=== PATIENT | male | born 1965 | race Caucasian/White ===

== ENCOUNTER 2021-12-21 07:26 | Day surgery (SDC) | payer OTHER ==
[~2021-12-21] VITALS: Ht 170.2 cm; Wt 77.1 kg
[2021-12-21] MEDS ORDERED: CEFAZOLIN SOD 1 GM in D5W 50 ML IV ONE (08:15)
[2021-12-21] MEDS ORDERED: LIDOCAINE 1% 10 MG/ML, 20 ML MDV ONE (10:40)
[2021-12-21] MEDS ORDERED: BUPIVACAINE /PF 0.25% 30 ML VIAL INJ ONE (10:40)
[2021-12-21] MEDS ORDERED: NS IRRIG SOLN 1000 ML IR ONE (10:40)
[2021-12-21] MEDS ORDERED: CEFAZOLIN 2 GM IVPB PREMIX 50 ML IV ONE (10:40)
[2021-12-21] MEDS ORDERED: SUGAMMADEX SODIUM 200 MG/2 ML VIAL IV ONE (10:40)
[2021-12-21] MEDS ORDERED: ROCURONIUM BROMIDE 10 MG/ML (ZEMURON) ONE (10:40)
[2021-12-21] MEDS ORDERED: DESFLURANE 15 MIN GAS INH ONE (10:40)
[2021-12-21] MEDS ORDERED: LR 1,000 ML IV.SOLN IV ONE (10:40)
[2021-12-21] MEDS ORDERED: KETOROLAC TROMETHAMINE 30 MG VIAL ONE (10:40)
[2021-12-21] MEDS ORDERED: ONDANSETRON HCL 4 MG/2 ML VIAL ONE (10:40)
[2021-12-21] MEDS ORDERED: fentaNYL CITRATE/PF 100 MCG/2 ML AMP ONE (10:40)
[2021-12-21] MEDS ORDERED: PROPOFOL 200MG/ 20ML VIAL (DIPRIVAN) IV ONE (10:40)
[2021-12-21] MEDS ORDERED: MIDAZOLAM HCL 2 MG/2 ML VIAL (VERSED) ONE (10:40)
[2021-12-21] MEDS ORDERED: LR 1,000 ML IV SCH (11:30)
[2021-12-21] MEDS ORDERED: METOCLOPRAMIDE HCL 10 MG/2 ML VIAL IVP PRN (11:30)
[2021-12-21] MEDS ORDERED: hydrALAZINE HCL 20 MG/ML VIAL IVP PRN (11:30)
[2021-12-21] MEDS ORDERED: HYDROmorphone 1 MG/ML INJ. CARTRIDGE IVP PRN ×2 (11:30)
[2021-12-21] MEDS ORDERED: MIDAZOLAM HCL 2 MG/2 ML VIAL (VERSED) IVP PRN (11:30)
[2021-12-21] MEDS ORDERED: LABETALOL 100 MG/ 20ML VIAL IVP PRN (11:30)
[2021-12-21] MEDS ORDERED: MEPERIDINE HCL/PF 25 MG/ML DISP.SYRIN IVP PRN (11:30)
[2021-12-21] MEDS ORDERED: ACETAMINOPHEN I.V. 1000 MG 100 ML IV ONE (11:52)
[2021-12-21] MEDS: HYDROmorphone 1 MG/ML INJ. CARTRIDGE ONE ×3 (13:06→13:16)
[2021-12-21] MEDS ORDERED: HYDROcodone/ACETAMIN 5-325 MG TAB (NORCO/ VICODIN) ONE ×2 (15:33→19:09)
[2021-12-21] MEDS: HYDROcodone/ACETAMIN 5-325 MG TAB (NORCO/ VICODIN) PO PRN ×2 (15:34→20:38)
[2021-12-21] MEDS ORDERED: LISI30TA36 PO (16:52)
[2021-12-21] MEDS ORDERED: SIMV10TA2 PO (16:52)
[2021-12-21] MEDS ORDERED: METF500S7 PO (16:52)
--- NOTE | 2021-12-21 20:00 | NUR ---
ADMISSION NOTE Received patient from OR via [facility]. Patient admitted with diagnosis of Abdominal Abscess and MESH infection. Patient is awake, alert, oriented X 4. Patient oriented to hospital room, call light, toileting, pain management and safety-teach back done. Patient informed that Justin will be the nurse and that their room number is 118A. Personal belongings checked and Belongings List documented. Call light within reach.
[2021-12-21] MEDS: D5/0.45 NS 1,000 ML IV SCH ×2 (21:52→22:04)
[2021-12-21 23:14] VITALS: BP_SYST 138
--- NOTE | 2021-12-22 00:30 | NUR ---
Patient reports abdominal pain 7. PRN pain relief was administered as ordered will continue to monitor.
[2021-12-22] MEDS: HYDROcodone/ACETAMIN 5-325 MG TAB (NORCO/ VICODIN) PO PRN ×2 (00:45→06:16)
--- NOTE | 2021-12-22 02:06 | NUR ---
PATIENT RESTING: Patient resting quietly. No acute distress noted. Vital signs within normal range.
[2021-12-22] MEDS: D5/0.45 NS 1,000 ML IV SCH (06:19)
--- NOTE | 2021-12-22 06:52 | NUR ---
CLOSING NOTES: Patient is in bed resting no s/s of distress is noted at this time. Patient is AA&Ox4 and able to make needs known, patient reported pain at 0615 at 410 5/325 PRN was administered as ordered. Patient has tolerated the PRN meds during the shift well and pain has been manageable. All current shift needs have been met at this time, safety measures are in place, and call light is within reach. Will differ further care to AM shift for continuity of care.
[2021-12-22 08:00] VITALS: BP_SYST 117
--- NOTE | 2021-12-22 08:00 | NUR ---
OPENING NOTE Patient in bed resting, AxO x4. States that his pain is 2/10 on his abdomen. No sign of distress. Patient has been able to ambulate to the restroom with steady gait. Abdominal binder in place. Dressing is intact, some brown drainage leaking through. All needs met at this time and safety checks made.
--- NOTE | 2021-12-22 11:30 | NUR ---
SPOKE TO MD Spoke to Dr Prather and updated him on the patient's status. MD stated it was okay to discharge patient home. Patient is to follow up in his office on . Keep abdominal binder on and leave dressing intact until .
[2021-12-22 12:00] VITALS: BP_SYST 123
[2021-12-22 13:17] VITALS: BP_SYST 123
--- NOTE | 2021-12-22 14:11 | NUR ---
D/C Patient Patient given medication reconciliation form and D/C instructions. Exit Care provided. Patient verbalized understanding. MD discussed with patient the results and treatment provided. Ambulatory with steady gait for discharge to home via private auto with family. Patient in stable condition, ID band removed. IV catheter removed, intact and dressing applied, no active bleeding. Patient educated on pain management. All belongings sent with patient.
[2021-12-24] MEDS ORDERED: LISI30TA36 PO (16:07)
[2021-12-24] MEDS ORDERED: METF-518 PO (16:07)
[2021-12-24] MEDS ORDERED: SIMV10TA2 PO (16:07)
== END 2021-12-22 14:11 | disposition home or self-care (01) ==
LOC: SDS 07:26 → SMU 07:28 → SDS 12-22 14:11
PROVIDERS: ATTEND Colon & Rectal Surgery
DX: L02.211 Cutaneous abscess of abdominal wall (principal); K46.9 Unspecified abdominal hernia without obstruction or gangrene; I10 Essential (primary) hypertension; E11.9 Type 2 diabetes mellitus without complications; E78.5 Hyperlipidemia, unspecified; Z20.822 Contact with and (suspected) exposure to COVID-19; Z79.899 Other long term (current) drug therapy
CPT/HCPCS: 10061; 10121; 36415 ×2; 64488; 82962; 87426; 88300; J0131; J0690 ×2; J1170; J1885; J2001; J2405; J2704; J3010; J3465; J3490 ×2; J7060; J7120; U0003